=== PATIENT | female | born 2000 | race Hispanic/Latino ===

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

== ENCOUNTER 2022-08-15 19:52 | Observation (INO) | payer OTHER ==
[2022-08-15] MEDS ORDERED: Acetaminophen 500 MG TAB ONE (20:35)
[2022-08-15] MEDS ORDERED: Ondansetron ODT 4 MG TAB ONE (20:40)
[2022-08-15 21:13] LABS: #Lymphocytes 0.5 thou/uL (1.20-3.40); #Monocytes 0.4 thou/uL (0.11-0.59); #Neutrophils 7.6 thou/uL (1.40-6.50); %Basophils 0.1 % (0.0-1.0); %Eosinophils 0.2 % (0.0-10.0); %Lymphocytes 6.2 % (28.0-48.0); %Monocytes 4.5 % (0.0-4.0); Hemoglobin 12.7 g/dL (12.0-16.0); Mean Corpuscular HGB CONC 35.1 g/dL (32.0-36.0); Mean Corpuscular Hemoglobin 28.9 pg (25.0-35.0); Mean Corpuscular Volume 82.4 fl (78.0-98.0); Mean Platelet Volume 6.7 fL (7.4-10.4); Platelet Count 233 10x3/uL (130-400); RBC Distribution Width 13.2 % (11.5-14.5); Red Blood Cell (RBC) Count 4.41 mill/uL (4.00-5.20); White Blood Cell (WBC) Count 8.5 10x3/uL (4.8-10.8)
[2022-08-15 21:20] LABS: SARS-CoV-2 NAA Rapid Test Not Detected (NotDetected)
[2022-08-15 21:32] LABS: ALT (SGPT) 13 U/L (8-55); AST (SGOT) 16 U/L (5-34); Albumin 4.7 g/dL (3.5-5.0); Alkaline Phosphatase 134 U/L (40-100); Anion Gap 15 mmol/L (10-20); BUN (Urea Nitrogen) 11 mg/dL (7.0-18.7); Bilirubin, Total 0.7 mg/dL (0.2-1.2); Calc. Creatinine Clearance 0 mL/min (70-130); Carbon Dioxide 21 mmol/L (22-29); Chloride 102 mmol/L (98-107); Estimated GFR 128; Glucose 91 mg/dL (70-105); Lipase 23 U/L (8-78); Potassium 3.5 mmol/L (3.5-5.1); Protein, Total 8.7 g/dL (6.0-8.3); Sodium 134 mmol/L (136-145)
[2022-08-15 21:55] LABS: Calcium 9.8 mg/dL (7.8-10.44)
[2022-08-15 22:48] LABS: Bilirubin Negative (Negative); Blood, Urine Negative (Negative); Clarity Clear (Clear); Glucose, Urine (Dipstick) Normal (Negative); Ketone, Urine 20 mg/dL (Negative); Leukocyte Negative Leu/uL (Negative); Nitrite Negative (Negative); Protein, Urine (Dipstick) Negative (Neg-Trace); Specific Gravity, Urine 1.006 (1.002-1.036); Urobilinogen Normal mg/dL (Less than 2)
[2022-08-15 22:52] LABS: Pregnancy Test - Urine (BHCG) Negative (Negative); Pregu Control Background? CLEAR/WHITE (CLR/WHITE); Pregu Control Bar Appear? YES (CONTROL BAR); Specific Gravity 1.006 (1.002-1.036)
[2022-08-16] MEDS ORDERED: Acetaminophen 325 MG TAB PO PRN (03:06)
[2022-08-16] MEDS ORDERED: Ondansetron PF 4 MG/2 ML Vial IVP PRN (03:06)
[2022-08-16] MEDS ORDERED: Ondansetron ODT 4 MG TAB PO PRN (03:06)
[2022-08-16] MEDS ORDERED: Morphine 2 MG/ML VIAL SLOW IVP PRN (04:01)
[2022-08-16 04:20] VITALS: BMI 17.9
[2022-08-16] MEDS: Sodium Chloride 0.9% 1,000 ML IV SCH ×2 (04:30→14:08)
[2022-08-16] MEDS: HYDROcodone/Acetaminophen 5/325 mg Tablet PO PRN ×2 (04:40→14:47)
[2022-08-16] MEDS: metroNIDAZOLE 500 MG in Premix Bag 1 BAG IVPB SCH ×2 (06:10→14:00)
[2022-08-16 08:08] VITALS: TEMP 97.9
[2022-08-16] MEDS ORDERED: Famotidine 20 MG TAB PO SCH (09:00)
[2022-08-16] MEDS ORDERED: Lorazepam 2 MG/ML VIAL ONE (09:13)
[2022-08-16] MEDS ORDERED: Dextrose 50% Abboject 50 ML SYRINGE SLOW IVP SCH (10:15)
[2022-08-16] MEDS ORDERED: Iopamidol-370 76% 500 ML 1 ML ONE (10:26)
[2022-08-16] MEDS ORDERED: Morphine 4 MG/ML VIAL SLOW IVP PRN (13:45)
[2022-08-16 15:58] VITALS: BP 100/64
== END 2022-08-16 16:45 | disposition home or self-care (01) ==
LOC: ERS 19:52 → SURG B 08-16 03:06
PROVIDERS: ADMIT Internal Medicine; ATTEND Internal Medicine
DX: R10.11 Right upper quadrant pain (principal); R50.9 Fever, unspecified; R11.2 Nausea with vomiting, unspecified; K82.8 Other specified diseases of gallbladder; K82.4 Cholesterolosis of gallbladder; M41.9 Scoliosis, unspecified; Z20.822 Contact with and (suspected) exposure to COVID-19
CPT/HCPCS: 36415; 36416; 74177; 76705; 78227; 80053; 81003; 81025; 82977; 83605; 83690; 84145; 85025; 93005; 96360; 96361; 96374; 96375; 96376; A9537; G0378; J0744; J7050; J7999; Q0162; Q9967